=== PATIENT | female | born 1965 | race African-American/Black ===

== ENCOUNTER 2020-06-22 12:47 | Emergency (ER) | payer BC, MEDICAID ==
[2020-06-23] MEDS ORDERED: Enoxaparin Sodium 30 MG/0.3 ML SYRINGE ONE (21:37)
== END 2020-06-22 15:29 ==
LOC: ERS 12:47
DX: U07.1 COVID-19 (principal); I10 Essential (primary) hypertension; J45.909 Unspecified asthma, uncomplicated; Z21 Asymptomatic human immunodeficiency virus [HIV] infection status; Z79.899 Other long term (current) drug therapy; Z79.82 Long term (current) use of aspirin
CPT/HCPCS: 99283

== ENCOUNTER 2020-10-05 08:35 | Emergency (ER) | payer BC, MEDICAID ==
[2020-10-05 09:07] LABS: #Eosinphils 0.2 thou/uL (0.0-0.7); #Lymphocytes 3.2 thou/uL (1.20-3.40); #Monocytes 1.2 thou/uL (0.11-0.59); #Neutrophils 11.4 thou/uL (1.40-6.50); %Basophils 0.2 % (0.0-1.0); %Eosinophils 1.5 % (0.0-10.0); %Lymphocytes 19.8 % (21.0-51.0); %Monocytes 7.2 % (0.0-10.0); %Neutrophils 71.3 % (42.0-75.0); Hemoglobin 11.1 g/dL (12.0-16.0); Mean Corpuscular HGB CONC 33.6 g/dL (32.0-36.0); Mean Corpuscular Hemoglobin 29.8 pg (27.0-31.0); Mean Corpuscular Volume 88.7 fL (78.0-98.0); Mean Platelet Volume 7.2 fL (7.4-10.4); Platelet Count 279 thou/uL (130-400); RBC Distribution Width 13.3 % (11.5-14.5); Red Blood Cell (RBC) Count 3.73 mill/uL (4.20-5.40)
[2020-10-05 09:29] LABS: ALT (SGPT) 21 U/L (8-55); AST (SGOT) 12 U/L (5-34); Albumin 4.3 g/dL (3.5-5.0); Alkaline Phosphatase 101 U/L (40-110); Anion Gap 13 mmol/L (10-20); BUN (Urea Nitrogen) 10 mg/dL (9.8-20.1); Bilirubin, Total 0.3 mg/dL (0.2-1.2); Calc. Creatinine Clearance 0 mL/min (70-130); Calcium 9.7 mg/dL (7.8-10.44); Carbon Dioxide 29 mmol/L (22-29); Chloride 104 mmol/L (98-107); Globulin 2.5 g/dL (2.4-3.5); Glucose 113 mg/dL (70-105); Protein, Total 6.8 g/dL (6.0-8.3); Sodium 143 mmol/L (136-145)
[2020-10-05 09:32] LABS: Potassium 2.8 mmol/L (3.5-5.1)
[2020-10-05] MEDS ORDERED: Potassium Chloride 20 MEQ TAB ONE (09:47)
[2020-10-05] MEDS ORDERED: Ondansetron ODT 4 MG TAB ONE (09:47)
[2020-10-05 11:14] LABS: Bilirubin Negative (Negative); Blood, Urine Negative (Negative); Clarity Clear (Clear); Glucose, Urine (Dipstick) Normal (Negative); Ketone, Urine Negative (Negative); Leukocyte Negative Leu/uL (Negative); Nitrite Negative (Negative); Protein, Urine (Dipstick) 20 mg/dL (Neg-Trace); Specific Gravity, Urine 1.018 (1.002-1.036); Urobilinogen Normal mg/dL (Less than 2); pH, Urine 5.5 (5.0-9.0)
[2020-10-05] MEDS ORDERED: Iopamidol-370 76% 500 ML 1 ML ONE (15:08)
== END 2020-10-05 13:48 | disposition home or self-care (01) ==
LOC: ERS 08:35
DX: K52.9 Noninfective gastroenteritis and colitis, unspecified (principal); E11.9 Type 2 diabetes mellitus without complications; I10 Essential (primary) hypertension; J45.909 Unspecified asthma, uncomplicated; Z21 Asymptomatic human immunodeficiency virus [HIV] infection status; Z79.82 Long term (current) use of aspirin; Z79.899 Other long term (current) drug therapy
CPT/HCPCS: 36415; 74177; 80053; 81003; 85025; 93005; Q0162; Q9967

== ENCOUNTER 2020-11-28 08:33 | Emergency (ER) | payer BC, MEDICAID | END 2020-11-28 11:03 | disposition home or self-care (01) | LOC: ERS 08:33 | DX: R05 Cough (principal); R06.02 Shortness of breath; J45.909 Unspecified asthma, uncomplicated; Z21 Asymptomatic human immunodeficiency virus [HIV] infection status; I10 Essential (primary) hypertension; D57.1 Sickle-cell disease without crisis; E11.9 Type 2 diabetes mellitus without complications; Z79.899 Other long term (current) drug therapy; Z79.82 Long term (current) use of aspirin | CPT/HCPCS: 99284 ==

== ENCOUNTER 2021-12-12 20:30 | Emergency (ER) | payer MEDICARE, BC, MEDICAID ==
[~2021-12-12 20:30] MED LIST: ISOVUE-370 76%-LOCM 1 ML ONE
[2021-12-12 21:04] LABS: #Basophils 0.1 thou/uL (0.0-0.2); #Eosinphils 0.3 thou/uL (0.0-0.7); #Lymphocytes 3.8 thou/uL (1.20-3.40); #Monocytes 0.6 thou/uL (0.11-0.59); #Neutrophils 4.3 thou/uL (1.40-6.50); %Eosinophils 3.4 % (0.0-10.0); %Lymphocytes 42.1 % (21.0-51.0); %Monocytes 6.6 % (0.0-10.0); %Neutrophils 46.9 % (42.0-75.0); Hemoglobin 10.9 g/dL (12.0-16.0); Mean Corpuscular HGB CONC 34.1 g/dL (32.0-36.0); Mean Corpuscular Hemoglobin 30.9 pg (27.0-31.0); Mean Corpuscular Volume 90.7 fL (78.0-98.0); Mean Platelet Volume 7.5 fL (7.4-10.4); Platelet Count 227 thou/uL (130-400); Red Blood Cell (RBC) Count 3.52 mill/uL (4.20-5.40); White Blood Cell (WBC) Count 9.1 thou/uL (4.8-10.8)
[2021-12-12 21:42] LABS: ALT (SGPT) 27 U/L (8-55); AST (SGOT) 18 U/L (5-34); Albumin 4.3 g/dL (3.5-5.0); Alkaline Phosphatase 99 U/L (40-110); Anion Gap 13 mmol/L (10-20); BUN (Urea Nitrogen) 16 mg/dL (9.8-20.1); Bilirubin, Total 0.2 mg/dL (0.2-1.2); Calc. Creatinine Clearance 0 mL/min (70-130); Calcium 9.5 mg/dL (7.8-10.44); Carbon Dioxide 27 mmol/L (22-29); Chloride 108 mmol/L (98-107); Estimated GFR 61; Globulin 2.3 g/dL (2.4-3.5); Glucose 107 mg/dL (70-105); Lipase 18 U/L (8-78); Protein, Total 6.6 g/dL (6.0-8.3); Sodium 145 mmol/L (136-145)
[2021-12-12 21:46] LABS: Potassium 2.9 mmol/L (3.5-5.1)
[2021-12-12 22:27] LABS: Magnesium 1.9 mg/dL (1.6-2.6)
[2021-12-12 23:40] LABS: Bilirubin Negative (Negative); Blood, Urine Negative (Negative); Clarity Clear (Clear); Glucose, Urine (Dipstick) Normal (Negative); Ketone, Urine Negative (Negative); Leukocyte Negative Leu/uL (Negative); Nitrite Negative (Negative); Protein, Urine (Dipstick) 10 mg/dL (Neg-Trace); Specific Gravity, Urine 1.015 (1.002-1.036); Urobilinogen Normal mg/dL (Less than 2); pH, Urine 6.5 (5.0-9.0)
== END 2021-12-13 00:48 | disposition home or self-care (01) ==
LOC: ERS 20:30
DX: R07.9 Chest pain, unspecified (principal); M54.6 Pain in thoracic spine; E11.9 Type 2 diabetes mellitus without complications; Z79.84 Long term (current) use of oral hypoglycemic drugs; B20 Human immunodeficiency virus [HIV] disease; Z79.899 Other long term (current) drug therapy
CPT/HCPCS: 36415; 71045; 71275; 80053; 81003; 83690; 83735; 84484; 85025; 85379; 93005; 96372; Q9966